=== PATIENT | female | born 1965 | race Caucasian/White ===

== ENCOUNTER → 2016-11-10 | Outpatient (CLI) | payer BC | LOC: BRMIMAGING 15:04 | DX: Z12.31 Encounter for screening mammogram for malignant neoplasm of breast (principal); Z80.3 Family history of malignant neoplasm of breast | CPT/HCPCS: G0202 ==

== ENCOUNTER → 2017-11-14 | Outpatient (CLI) | payer BC | LOC: BRMIMAGING 08:25 | DX: Z12.31 Encounter for screening mammogram for malignant neoplasm of breast (principal); Z85.3 Personal history of malignant neoplasm of breast ==

== ENCOUNTER → 2018-11-21 | Outpatient (CLI) | payer BC | LOC: BRMIMAGING 13:41 | DX: Z12.31 Encounter for screening mammogram for malignant neoplasm of breast (principal); Z80.3 Family history of malignant neoplasm of breast ==